=== PATIENT | female | born 1935 | race American Indian/Alaskan Native ===

== ENCOUNTER 2021-04-26 09:29 | Inpatient (IN) | payer MEDICARE, OTHER ==
[~2021-04-26] VITALS: Ht 149.9 cm; Wt 40.2 kg
[2021-04-26 10:39] LABS: BASOPHILS ABSOLUTE AUTO 0.03 K/mm3 (0.00-0.23); BASOPHILS PERCENT AUTO 0 % (0-2); EOSINOPHILS ABSOLUTE AUTO 0.02 K/mm3 (0.00-0.68); EOSINOPHILS PERCENT AUTO 0 % (0-6); Hematocrit 38.3 % (33.0-51.0); Hemoglobin 12.4 g/dL (11.5-16.0); IMMATURE GRAN ABSOLUTE AUTO 0.03 K/mm3 (0.00-0.10); IMMATURE GRAN PERCENT AUTO 0 % (0-1); LYMPHOCYTES ABSOLUTE AUTO 1.82 K/mm3 (0.84-5.20); LYMPHOCYTES PERCENT AUTO 19 % (21-46); MONOCYTES ABSOLUTE AUTO 0.61 K/mm3 (0.16-1.47); MONOCYTES PERCENT AUTO 6 % (4-13); Mean Corpuscular HGB 30.8 pg (26.0-34.0); Mean Corpuscular HGB Conc 32.4 g/dL (31.5-36.5); Mean Corpuscular Volume 95 fL (80-100); Mean Platelet Volume 10.7 fL (9.1-12.4); NEUTROPHILS ABSOLUTE AUTO 7.15 K/mm3 (1.96-9.15); NEUTROPHILS PERCENT AUTO 74 % (41-73); Platelet Count 292 K/mm3 (150-400); RDW Standard Deviation 45.5 fL (35.1-46.3); Red Blood Cell Count 4.03 M/mm3 (3.80-5.20); White Blood Cell Count 9.66 K/mm3 (4.00-11.30)
[2021-04-26 10:47] LABS: Albumin, Blood 3.4 g/dL (3.4-5.0); Albumin/Globulin Ratio 0.9 (0.8-1.8); Bilirubin, Total 0.2 mg/dL (0.1-1.0); Bun/Creatinine Ratio 26.7 (12.0-20.0); Calcium, Blood 8.3 mg/dL (8.5-10.1); Creatinine, Blood 1.01 mg/dL (0.40-1.00); Globulin, Blood 3.9 g/dL (2.2-4.0); Potassium, Blood 4.8 mmol/L (3.5-5.5); Total Protein, Blood 7.3 g/dL (6.4-8.2)
[2021-04-26 11:18] LABS: International Normalized Ratio 0.96; Prothrombin Time Results 10.4 Sec (9.7-11.5)
[2021-04-26 13:31] LABS: Source, Urine Clean Catch
[2021-04-26 14:28] LABS: Appearance, Urine Clear (Clear); Bilirubin, Urine Neg (Neg); Blood, Urine 1+ (Neg); Color, Urine Yellow (P-Yellow); Glucose Qualitative, Urine Neg (Neg); Ketones, Urine Neg (Neg); Leukocyte Esterase, Urine Neg (Neg); Nitrite, Urine Neg (Neg); Protein, Urine 1+ (Neg); Urobilinogen, Urine NORM (Normal)
[2021-04-26 14:55] LABS: Bacteria Few /hpf; White Blood Cells, Urine 0-2 /hpf (0-5)
[2021-04-26 14:56] LABS: Squamous Epithelial Cells Few /hpf (Few)
--- NOTE | 2021-04-26 17:50 | NUR ---
SUMMARY PT ADMITTED FROM THE ER FOR CVA, PT ARRIVED TO THE ROOM WITH HER SON, PT ABLE TO TRANSFER SELF FROM THE GURNEY TO THE BED, PT HAS DEMENTIA, SON REPORTS SHE FELL AT HOME PRIOR TO ADMIT, BED ALARM ON FOR SAFETY AND PT EDUCATED TO USE THE CALL LIGHT, MEDICAL RESEARCHER STRENGTH EQUAL AND FOOT STRENGTH EQUAL, SLIGHT R SIDED FACIAL DROOP SEEN, PT WITH PERMISSIVE HTN, NO COMPLAINTS, WILL CONT TO MONITOR
--- NOTE | 2021-04-26 19:08 | NUR ---
ASSUMED CARE RECEIVED REPORT FROM SYED DOBBINS. PT RESTING, IN NAD. NO ACUTE NEEDS ASSESSED AT THIS TIME. CALL LIGHT, POSSESSIONS IN REACH, BED IN LOW AND LOCKED POSITION WITH ALARMS ON.
[2021-04-27 06:03] LABS: Hematocrit 38.8 % (33.0-51.0); Mean Corpuscular HGB 30.9 pg (26.0-34.0); Mean Corpuscular HGB Conc 33.5 g/dL (31.5-36.5); Mean Corpuscular Volume 92 fL (80-100); Mean Platelet Volume 10.6 fL (9.1-12.4); Platelet Count 309 K/mm3 (150-400); RDW Coefficient Variation 12.9 % (11.7-14.2); RDW Standard Deviation 43.9 fL (35.1-46.3); Red Blood Cell Count 4.21 M/mm3 (3.80-5.20); White Blood Cell Count 11.11 K/mm3 (4.00-11.30)
[2021-04-27 06:29] LABS: Anion Gap 10 mmol/L (6-16); Blood Urea Nitrogen 19 mg/dL (8-24); Bun/Creatinine Ratio 21.2 (12.0-20.0); CHOL/HDL RATIO 3.5; CO2, Blood 19 mmol/L (21-32); Calcium, Blood 8.4 mg/dL (8.5-10.1); Chloride, Blood 111 mmol/L (98-108); Cholesterol 201 mg/dL (50-200); Glomerular Filtration Rate >60 (60-); Glucose, Blood 115 mg/dL (70-99); HDL Cholesterol 57 mg/dL (>39); LDL/HDL RATIO 2.2; Low Density Lipoprotein Chol 124 mg/dL (0-110); Potassium, Blood 3.9 mmol/L (3.5-5.5); Sodium, Blood 140 mmol/L (136-145); Triglycerides 99 mg/dL (30-160); Very Low Density Lipoprot Chol 19 mg/dL (6-32)
--- NOTE | 2021-04-27 07:05 | NUR ---
ICE SKATING INSTRUCTOR SUMMARY PT RESTING, IN NAD. VS REVIEWED,WNL. HAS BEEN SLEEPING ON AND OFF T/O NIGHT. ADARSH VEST AND SIDERAILS UP X4 REMAIN IN PLACE. CONTINUES TO ATTEMPT TO EXIT BED. NO OTHER ACUTE CHANGES NOTED OVERNIGHT. CALL LIGHT, POSSESSIONS IN REACH, BED IN LOW AND LOCKED POSITION WITH ALARMS ON. HEPARIN DRIP ONGOING. REPORT GIVEN TO SYED HENRY.
[2021-04-27] MEDS ORDERED: ACET325 PO (17:11)
[2021-04-27] MEDS ORDERED: ATOR40TA PO (17:11)
[2021-04-27] MEDS ORDERED: ASPI300S PR (17:11)
[2021-04-27] MEDS ORDERED: ASPI81CH PO (17:11)
[2021-04-27] MEDS ORDERED: LORA2L PO (17:12)
[2021-04-27] MEDS ORDERED: MORP20L PO (17:12)
[2021-04-27] MEDS ORDERED: CIPR250 PO (17:13)
[2021-04-27] MEDS ORDERED: TRANSDERM-SCOP1 EAC1 TD (17:13)
--- NOTE | 2021-04-27 17:57 | NUR ---
PATIENT DISCHARGE: PATIENT DISCHARGED HOME WITH HOSPICE THIS SHIFT. MEDICATION RECONCILIATION COMPLETED; HARDS SCRIPTS X3 PROVIDED TO FAMILY FOR CONTROLLED SUBSTANCES. DISCHARGE EDUCATION COMPLETED WITH PATIENT AND FAMILY. PATIENT TRANSPORTED TO EXIT BY [facility] STAFF WITH WHEELCHAIR AT [id number]. PATIENT DEPARTED [facility] VIA PRIVATE AUTO.
== END 2021-04-27 17:56 | disposition hospice, home (50) | DRG 65 ==
LOC: ER 09:29 → MEDS 14:38
PROVIDERS: Emergency Medicine; Nurse Practitioner Acute Care; ADMIT Internal Medicine
DX: I63.512 Cerebral infarction due to unspecified occlusion or stenosis of left middle cerebral artery (principal); G81.91 Hemiplegia, unspecified affecting right dominant side; R47.81 Slurred speech; R29.810 Facial weakness; Z66 Do not resuscitate; Z51.5 Encounter for palliative care; R26.81 Unsteadiness on feet; R47.01 Aphasia; R29.704 NIHSS score 4; I10 Essential (primary) hypertension; F17.210 Nicotine dependence, cigarettes, uncomplicated; E78.5 Hyperlipidemia, unspecified; G30.9 Alzheimer's disease, unspecified; F02.80 Dementia in other diseases classified elsewhere, unspecified severity, without behavioral disturbance, psychotic disturbance, mood disturbance, and anxiety; Z90.49 Acquired absence of other specified parts of digestive tract; Z90.710 Acquired absence of both cervix and uterus; Z98.890 Other specified postprocedural states
CPT/HCPCS: 36415; 70450; 70496; 70498; 70551; 71045; 80048; 80053; 80061; 81001; 83036; 85025; 85027; 85610; 85730; 92610; 93005; 93010; 93306; 96365-59; 97162; 97530; 99285-25; J0360; J1644; J7030; Q3014; Q9967